=== PATIENT | female | born 1995 | race Caucasian/White ===

== ENCOUNTER 2019-09-29 03:40 | Emergency (ER) | payer SELFPAY ==
[~2019-09-29] VITALS: Ht 170.2 cm; Wt 86.2 kg
--- NOTE | 2019-09-29 03:55 | NUR ---
PATIENT ARRIVED AT THE ER WITH C/O OF COUGH X 2 WKS. AAOX4. NO CARDIOVASCULAR CONCERN. NO /GI CONCERN.
--- NOTE | 2019-09-29 04:04 | NUR ---
Dr. Dickerson at bedside for MSE.
--- NOTE | 2019-09-29 04:14 | NUR ---
Patient discharged to home in stable condition. Written and verbal after care instructions given. Patient verbalizes understanding of instructions. Stressed follow up or return to ER for worsening s/s. Pt ambulated out of the ER with steady gait. All belongings with pt.
[2019-09-29 04:15] VITALS: BP 110/66
== END 2019-09-29 04:15 | disposition home or self-care (01) ==
LOC: ER 03:50
DX: R05 Cough (principal)
CPT/HCPCS: A4663